=== PATIENT | male | born 1980 | race Two or more races ===

== ENCOUNTER 2017-07-15 11:11 | Emergency (ER) | payer MEDICAID ==
[2017-07-15] MEDS ORDERED: IBUPROFEN 600 MG TABLET PO ONE (12:18)
--- NOTE | 2017-07-15 12:33 | RADIOLOGY REPORT (SQ) ---
EXAM DESCRIPTION: WRIST LEFT 3 VIEWS COMPLETED DATE/TIME: 07/15/2017 12:01 pm REASON FOR STUDY: fall COMPARISON: None. NUMBER OF VIEWS: Three views. TECHNIQUE: AP, lateral, and oblique radiographic images acquired of the left wrist. LIMITATIONS: None. FINDINGS: MINERALIZATION: Normal. BONES: No acute fracture or dislocation. There is some deformity of the scaphoid carpal bone which m ay be related to previous trauma SOFT TISSUES: No soft tissue swelling. No foreign body. OTHER: No other significant finding. IMPRESSION: NO RADIOGRAPHIC EVIDENCE OF ACUTE INJURY. There is some deformity of the scaphoid carp al bone which may be related to previous trauma TECHNICAL DOCUMENTATION: JOB ID: [id number] [employer]- All Rights Reserved Reading location - IP/workstation name: [email or web address]
--- NOTE | 2017-07-15 13:08 | ER Document Report ---
ED Extremity Problem, Upper - General Chief Complaint: Arm Pain Stated Complaint: ARM PAIN Time Seen by Provider: 07/15/17 12:11 Mode of Arrival: Ambulatory Notes: 37-year-old male presents to ED for complaint of pain in the left wrist after he fell at work yesterday. He states he is unable to move his wrist. There is no edema no swelling. He states that 10 years ago he broke his wrist when he fell and bone was through the skin and someone at work fixed it. TRAVEL OUTSIDE OF THE [place] IN LAST 30 DAYS: No - HPI Patient complains to provider of: Left, Wrist Onset: Other - States it is hard off and on for many years but it was worse yesterday after he fell Recent injury: Possibly Where: Work Quality of pain: Achy Severity of pain: Severe Pain Level: 5 Context: Fall Associated symptoms: None Exacerbated by: Movement Relieved by: Nothing Similar symptoms previously: Yes Recently seen / treated by doctor: No - Related Data Allergies/Adverse Reactions: No Known Allergies Allergy (Unverified 07/15/17 11:38) Past Medical History - General Information source: Patient - Social History Smoking Status: Current Every Day Smoker Cigarette use (# per day): Yes - Pack per day Chew tobacco use (# tins/day): No Smoking Education Provided: Yes - 4 minutes Frequency of alcohol use: None Drug Abuse: None Occupation: Store Lives with: Friend Family History: Reviewed & Not Pertinent Patient has suicidal ideation: No Patient has homicidal ideation: No - Past Medical History Cardiac Medical History: Reports: None Pulmonary Medical History: Reports: None EENT Medical History: Reports: None Neurological Medical History: Reports: None Endocrine Medical History: Reports: None Renal/ Medical History: Reports: None Malignancy Medical History: Reports None GI Medical History: Reports: None Musculoskeltal Medical History: Reports Hx Musculoskeletal Trauma - Fractured left wrist Skin Medical History: Reports None Psychiatric Medical History: Reports: None Traumatic Medical History: Reports: None Infectious Medical History: Reports: None Surgical Hx: Negative Past Surgical History: Reports: None Review of Systems - Review of Systems Constitutional: No symptoms reported EENT: No symptoms reported Cardiovascular: No symptoms reported Respiratory: No symptoms reported Gastrointestinal: No symptoms reported Genitourinary: No symptoms reported Male Genitourinary: No symptoms reported Musculoskeletal: Other - Pain left wrist Skin: No symptoms reported Hematologic/Lymphatic: No symptoms reported Neurological/Psychological: No symptoms reported -: Yes All other systems reviewed and negative Physical Exam - Vital signs Vitals: Temp Pulse Resp BP Pulse Ox 98.2 F 85 16 122/88 H 97 07/15/17 11:17 07/15/17 11:17 07/15/17 11:17 07/15/17 11:17 07/15/17 11:17 Interpretation: Normal - General General appearance: Appears well, Alert - HEENT Head: Normocephalic, Atraumatic Eyes: Normal Pupils: PERRL - Respiratory Respiratory status: No respiratory distress Chest status: Nontender Breath sounds: Normal Chest palpation: Normal - Cardiovascular Rhythm: Regular Heart sounds: Normal auscultation Murmur: No - Abdominal Inspection: Normal Distension: No distension Bowel sounds: Normal Tenderness: Nontender Organomegaly: No organomegaly - Back Back: Normal, Nontender - Extremities General upper extremity: Normal color, Normal temperature General lower extremity: Normal inspection, Nontender, Normal color, Normal ROM , Normal temperature, Normal weight bearing. No: Amanda's sign Wrist: Tender, Limited ROM. No: Abrasion, Axial load of thumb pain, Deformity, Dislocation, Ecchymosis, Instability, Navicular tenderness - Neurological Neuro grossly intact: Yes Cognition: Normal Orientation: AAOx4 Oxford Coma Scale Eye Opening: Spontaneous Genna Coma Scale Verbal: Oriented Oxford Coma Scale Motor: Obeys Commands Genna Coma Scale Total: 15 Speech: Normal Motor strength normal: LUE, RUE, LLE, RLE Sensory: Normal - Psychological Associated symptoms: Normal affect, Normal mood - Skin Skin Temperature: Warm Skin Moisture: Dry Skin Color: Normal Course - Re-evaluation Re-evalutation: 07/15/17 20:37 X-rays negative. Patient x-rays were discussed with patient and written report given to patient to follow-up with orthopedics. Patient was treated with a cock -up splint to enable him to do his work with his pain in his wrist. Patient was treated with ibuprofen instructed to elevate ice and use ibuprofen for the pain. There was a deformity to the scaphoid bone that was not a new injury. He said that it was a previous trauma. Patient instructed that this needed further assessed by an orthopedic surgeon and that he needed to follow-up. - Vital Signs Vital signs: Temp Pulse Resp BP Pulse Ox 98.0 F 73 17 117/76 100 07/15/17 13:19 07/15/17 13:19 07/15/17 13:19 07/15/17 13:19 07/15/17 13:19 - Diagnostic Test Radiology reviewed: Image reviewed, Reports reviewed Discharge - Discharge Clinical Impression: Left wrist pain Condition: Stable Disposition: HOME, SELF-CARE Additional Instructions: He was seen today for left wrist pain. You denied any new injury to the wrist. You states that she broke your wrist in the past but did not have it properly treated by an orthopedic doctor. You x-rays show some deformities at the scaphoid on your wrist. This needs to be followed up with an orthopedic hand surgeon. I am going to treat you with a cock-up splint which will decrease the motion in your wrist but you need to follow-up with the orthopedic doctor to have this injury further investigated and treated. I will give you a prescription for ibuprofen but she still need to follow-up with the orthopedic doctor. SPLINT PRECAUTIONS: A splint has been placed. This will protect the area while healing begins. Your problem does NOT normally require a cast. It MUST, however, be held still! Keep the splint on ALL THE TIME until instructed to remove it by the doctor. As you begin to use the area, be careful. You shouldn't do anything which causes discomfort -- you may disturb the injury even with the splint in place. After the initial period of rest and elevation, if splint does not prevent pain when you move, come back. You may require placement of a different splint , or a cast. If there is unexpected severe pain, or numbness, discoloration, or swelling beyond the splint, you should return at once. If you feel that the splint has broken or become loose, come back. ICE & ELEVATION: Apply ice packs frequently against the painful area. Many different schedules are recommended, such as "20 minutes on, 20 minutes off" or "one hour ice, two hours rest." If you need to work, you may need to go longer between ice treatments. You should plan to have the area ice packed AT LEAST one- fourth of the time. The ice should be applied over the wrap, tape, or splint, or over a layer of cloth -- not directly against the skin. Some ice bags have a built-in cloth and can be put directly on the skin. Your injured part should be elevated as much as possible over the next 48 hours. Try to keep the injury above the level of the heart. Avoid use of the injured area. Elevation and rest will decrease the swelling. USE OF [id number] IBUPROFEN: Ibuprofen (Advil, Nuprin, Medipren, Motrin IB) is a medication for fever and pain control. In addition, it has anti- inflammatory effects which may be beneficial, especially in the treatment of injuries. It's best to take ibuprofen with food. Persons with ulcer disease or allergy to aspirin should notify their physician of this before taking ibuprofen. Ibuprofen can be given every four to six hours, for a total of four doses daily. Age Pain or fever dose Antiinflammatory dose 6-8 yr 200 mg (1 tab) 200 mg (1 tab) 9-11 yr 200 mg (1 tab) 200-400 mg (1-2 tab) 11-14 yr 200-400 mg (1-2 tab) 400 mg (2 tab) 15-adult 400 mg (2 tab) 600 mg (3 tab) FOLLOW-UP CARE: If you have been referred to a physician for follow-up care, call the physician s office for an appointment as you were instructed or within the next two days. If you experience worsening or a significant change in your symptoms, notify the physician immediately or return to the Emergency Department at any time for re-evaluation. Prescriptions: Ibuprofen 600 mg PO Q6HP PRN #20 tablet PRN Reason: Forms: Elevated Blood Pressure Referrals: AALIYAH VAUGHN DO [ACTIVE STAFF] - Follow up as needed
[2017-07-15 13:21] VITALS: BP 117/76
== END 2017-07-15 13:22 | disposition home or self-care (01) ==
LOC: ER 11:11
DX: M25.532 Pain in left wrist (principal); F17.210 Nicotine dependence, cigarettes, uncomplicated
CPT/HCPCS: 99406; 99283; 73110; L3908